=== PATIENT | male | born 1975 | race Caucasian/White ===

== ENCOUNTER 2017-10-03 23:03 | Emergency (ER) | payer OTHER ==
[2017-10-03 23:11] VITALS: BP 167/99; PULSE 98; RESP 18; TEMP 98.4
[2017-10-03] MEDS ORDERED: HYDROcodone/APAP 7.5-325MG 1 EACH TAB PO ONE (23:40)
--- NOTE | 2017-10-04 00:04 | ED ---
General Adult HPI - General Chief complaint: Skin/Abscess/Foreign Body Stated complaint: abscess Time Seen by Provider: 10/03/17 23:18 Source: patient Mode of arrival: ambulatory Limitations: no limitations - History of Present Illness Initial comments: A 42-year-old male with past medical history of low back pain who presents today for chief complaint of abscess to left armpit times one day. Patient states that last week he noticed a small bump in his left armpit, he didn't think anything of it but noticed it when he was applying deodorant. Yesterday night he noticed that the bump had enlarged, and was exquisitely tender to palpation and movement of the left arm. Today throughout the course the day the pain has been increasing, pain or surrounding redness around the area. Patient's girlfriend has a daughter with hydradenitis suppurative so she tried to I&D one of the abscesses herself using a needle. She stated that she was able to get quite a bit of purulent discharge from the abscess. However the patient can no longer take the pain and presented to the emergency department. Patient denies experiencing this before. Patient denies any fever, chills, malaise, fatigue or history of previous MRSA infection. Patient denies any recent fever, chills, shortness of breath, chest pain, back pain, abdominal pain , nausea or vomiting, numbness or tingling, dysuria or hematuria, constipation or diarrhea, headaches or visual changes, or any other complaints. Upon presentation emergency department patient's vital signs within normal limits, patient is afebrile with normal heart rate. Patient denies taking any medication for the pain, he says he's been using his medical marijuana. - Related Data Previous Rx's Medication Instructions Recorded Doxycycline [Vibramycin] 100 mg PO Q12HR 10 Days #40 capsule 10/03/17 HYDROcodone/APAP 5-325MG [Imperial 5] 1 each PO Q6HR PRN #4 tab 10/03/17 Allergies Allergy/AdvReac Type Severity Reaction Status Date / Time amoxicillin AdvReac Rash/Hives Verified 10/03/17 23:11 Review of Systems ROS Statement: Those systems with pertinent positive or pertinent negative responses have been documented in the HPI. ROS Other: All systems not noted in ROS Statement are negative. Constitutional: Denies: fever, chills, weakness, night sweats Respiratory: Denies: cough, dyspnea Cardiovascular: Denies: chest pain, palpitations Endocrine: Denies: fatigue Gastrointestinal: Denies: abdominal pain, nausea, vomiting, diarrhea, constipation Genitourinary: Denies: urgency, dysuria Skin: Reports: as per HPI, lesions Neurological: Denies: headache, numbness, paresthesias Past Medical History Past Medical History: No Reported History History of Any Multi-Drug Resistant Organisms: None Reported Past Surgical History: Back Surgery, Orthopedic Surgery Additional Past Surgical History / Comment(s): wrist and hands bilat, Past Psychological History: No Psychological Hx Reported Smoking Status: Current every day smoker Past Alcohol Use History: Occasional Past Drug Use History: None Reported General Exam - General Exam Comments Initial Comments: General: The patient is awake and alert, in no distress, and does not appear acutely ill. Eye: Pupils are equal, round and reactive to light, extra-ocular movements are intact. No nystagmus. There is normal conjunctiva bilaterally. No signs of icterus. Ears, nose, mouth and throat: There are moist mucous membranes and no oral lesions. Neck: The neck is supple, there is no tenderness or JVD. Cardiovascular: There is a regular rate and rhythm. No murmur, rub or gallop is appreciated. Respiratory: Lungs are clear to auscultation, respirations are non-labored, breath sounds are equal. No wheezes, stridor, rales, or rhonchi. Neurological: A&O x 3. CN II-XII intact, There are no obvious motor or sensory deficits. Coordination appears grossly intact. Speech is normal. Skin: Skin is warm and dry. Multiple carbuncles to the left axillary region with surrounding induration, soft tissue swelling and erythema. No palpable areas of tracking. There is mild overlying cellulitis. No active drainage present. U/S examination revealed no large pockets of collected fluid Psychiatric: Cooperative, appropriate mood & affect, normal judgment. Limitations: no limitations Course Vital Signs 10/03/17 23:08 Temperature 98.4 F Pulse Rate 98 Respiratory 18 Rate Blood Pressure 167/99 O2 Sat by Pulse 99 Oximetry Medical Decision Making - Medical Decision Making Upon physical examination there was lots of palpable induration and soft tisseu swelling, with no large area of fluctulance palpable-no palpable areas of tracking. An U/S of the left axillary region was peformed by Dr. Bush revealing no large pockets of fluid collection for drainage, there was soft tissue swelling/induration present. Pt was given norco 7.5-325 PO for pain management. I&D was not performed given no area of fluid collection for drainage. Pt afebrile and HR WNL, denying any fever, chills or malaise there are no signs of systemic spread of infection. Pt was instructed to use warm compresses 20minutes TID and to take doxycycline RX. Pt was prescribed 4 tabs of norco for pain management as needed, denied any current home opiods use, the opiods start talking form was discussed in detail as well as the risks of opiod use. Pt is to f/u with PCP in 1-2 days and to return to ED for signs of worsening infection as was discussed in detail. Case was discussed in detail and pt was examined in person by Dr. Bush who agrees with plan. Pt discharged in stable condition. Disposition Clinical Impression: Carbuncle of left axilla, Cellulitis of left axilla Disposition: HOME SELF-CARE Condition: Good Instructions: Hidradenitis Suppurativa (ED) Additional Instructions: Please use medication as discussed. Please follow-up with family doctor in the next 2 days of symptoms have not improved. Please return to emergency room if the symptoms increase or worsen or for any other concerns-including the signs of worsening infection discussed. Please apply warm compresses for 20 minutes 3- 4x a day. Prescriptions: Doxycycline [Vibramycin] 100 mg PO Q12HR 10 Days #40 capsule HYDROcodone/APAP 5-325MG [Imperial 5] 1 each PO Q6HR PRN #4 tab PRN Reason: Pain Is patient prescribed a controlled substance at d/c from ED?: Yes When asked, does pt state using other controlled substances?: No If prescribed controlled substance>3 days was MAPS reviewed?: Prescribed <3 Days If opioid is for acute pain is fill amount 7 days or less?: Yes If Rx opioid, was Start Talking consent form obtained?: Yes Referrals: Nonstaff,Physician [Primary Care Provider] - 1-2 days Time of Disposition: 00:07
== END 2017-10-04 00:17 | disposition home or self-care (01) ==
LOC: EDBD → EC 23:03
DX: L02.432 Carbuncle of left axilla (principal); L03.112 Cellulitis of left axilla; F17.200 Nicotine dependence, unspecified, uncomplicated; Z88.0 Allergy status to penicillin; Z98.890 Other specified postprocedural states
CPT/HCPCS: 99282